=== PATIENT | female | born 1985 | race Caucasian/White ===

== ENCOUNTER 2016-11-02 03:24 | Emergency (ER) | payer OTHER ==
[~2016-11-02] VITALS: Ht 167.6 cm; Wt 65.8 kg
[2016-11-02 03:25] VITALS: BP 148/93
[2016-11-02] MEDS ORDERED: IV NORMAL SALINE 1,000ML 1,000 ML IV SCH (03:35)
[2016-11-02] MEDS ORDERED: 0.9 % SODIUM CHLORIDE 10 ML DISP.SYRIN. IV PRN (03:45)
[2016-11-02] MEDS ORDERED: LIDO:MAALOX 1:1 20 ML SINGLE DOSE PO ONE (03:45)
[2016-11-02] MEDS ORDERED: ONDANSETRON PF 4 MG/2 ML VIAL. IV ONE (04:00)
[2016-11-02] MEDS ORDERED: HYDROmorphone PF 1 MG/ML DISP.SYRIN IV ONE (04:00)
[2016-11-02] MEDS ORDERED: LORazepam 2 MG/ML VIAL IV ONE ×2 (04:00→05:15)
--- NOTE | 2016-11-02 04:06 | EKG ---
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
--- NOTE | 2016-11-02 04:14 | PHYS DOC ---
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 She felt that it is much reminiscent of her reflux disease attempted to take some antacids and sleeping aids before going to bed. The pain is gotten progressively worse describes fullness sharp stabbing pain in the epigastrium with radiation to the back and makes her very nauseous with nonbilious nonbloody vomiting. He's had no diarrhea, no shortness of breath no chest pain but she felt very anxious. She denies any fevers, chills, URI symptoms, trauma, sick contacts. She has had similar symptoms in the past. Patient denies any travel outside the country, antibiotic use or consumption of raw or undercooked food. Pain presently is an 8 of 10 with radiation to the back made worse by the thought of food. Not improved by position or antiacids at this time. She denies any UTI symptoms Review of Systems Review of Systems Constitutional: Denies fever or chills [] Eyes: Denies change in visual acuity, redness, or eye pain [] HENT: Denies nasal congestion or sore throat [] Respiratory: Denies cough or shortness of breath [] Cardiovascular: No additional information not addressed in HPI [] GI: Main complaint is abdominal pain with nausea and nonbilious nonbloody vomiting without diarrhea. : Denies dysuria or hematuria [] Musculoskeletal: Denies back pain or joint pain [] Integument: Denies rash or skin lesions [] Neurologic: Denies headache, focal weakness or sensory changes [] Endocrine: Denies polyuria or polydipsia [] Current Medications Current Medications Current Medications Medications (Trade) Dose Ordered Sig/Mayra Start Time Stop Time Status Last Admin Dose Admin Multi-Ingredient Mouthwash/Gargle (Gi Cocktail) 20 ml 1X ONCE 11/02/16 03:45 11/02/16 03:46 DC 11/02/16 03:44 20 ML Sodium Chloride (Normal Saline Flush) 10 ml QSHIFT PRN 11/02/16 03:45 Allergies Allergies Allergies Coded Allergies Type Severity Reaction Last Updated Verified No Known Drug Allergies 11/02/16 No Physical Exam Physical Exam Patient anxious and tachypnea saturating 100% on room air vital signs within normal limits. Constitutional: Well developed, well nourished, very anxious although no acute distress HENT: Normocephalic, atraumatic, bilateral external ears normal, oropharynx moist, no oral exudates, nose normal. [] Eyes: PERRLA, EOMI, conjunctiva normal, no discharge. [] Neck: Normal range of motion, no tenderness, supple, no stridor. [] Cardiovascular:Heart rate regular rhythm, no murmur [] Lungs & Thorax: Bilateral breath sounds clear to auscultation [] Abdomen: Bowel sounds are increased hyperactive tenderness in the epigastrium with no guarding rebound or organomegaly Skin: Warm, dry, no erythema, no rash. [] Back: No tenderness, no CVA tenderness. [] Extremities: No tenderness, no cyanosis, no clubbing, ROM intact, no edema. [] Neurologic: Alert and oriented X 3, normal motor function, normal sensory function, no focal deficits noted. [] Psychologic: She is very anxious obviously uncomfortable but nontoxic in appearance Current Patient Data Vital Signs Vital Signs Date Time Temp Pulse Resp B/P (MAP) Pulse Ox O2 Delivery O2 Flow Rate FiO2 11/02/16 04:00 22 99 11/02/16 03:25 97.7 80 Room Air Lab Results Laboratory Tests Test 11/02/16 03:35 11/02/16 03:52 11/02/16 03:55 Urine Collection Type Unknown Urine Color Yellow Urine Clarity Clear Urine pH 7.0 Urine Specific [place] 1.015 Urine Protein Neg (NEG-TRACE) Urine Glucose (UA) Neg mg/dL (NEG) Urine Ketones (Stick) Neg mg/dL (NEG) Urine Blood Trace (NEG) Urine Nitrite Neg (NEG) Urine Bilirubin Neg (NEG) Urine Urobilinogen Dipstick 0.2 mg/dL (0.2 mg/dL) Urine Leukocyte Esterase Neg (NEG) Urine RBC Rare /HPF (0-2) Urine WBC Rare /HPF (0-4) Urine Squamous Epithelial Cells Occ /LPF Urine Bacteria 0 /HPF (0-FEW) POC Urine HCG, Qualitative hcg negative (Negative) White Blood Count 7.1 x10^3/uL (4.0-11.0) Red Blood Count 4.68 x10^6/uL (3.50-5.40) Hemoglobin 13.1 g/dL (12.0-15.5) Hematocrit 39.2 % (36.0-47.0) Mean Corpuscular Volume 84 fL (79-100) Mean Corpuscular Hemoglobin 28 pg (25-35) Mean Corpuscular Hemoglobin Concent 34 g/dL (31-37) Red Cell Distribution Width 13.2 % (11.5-14.5) Platelet Count 224 x10^3/uL (140-400) Neutrophils (%) (Auto) 34 % (31-73) Lymphocytes (%) (Auto) 54 % (24-48) H Monocytes (%) (Auto) 7 % (0-9) Eosinophils (%) (Auto) 5 % (0-3) H Basophils (%) (Auto) 1 % (0-3) Neutrophils # (Auto) 2.4 x10^3uL (1.8-7.7) Lymphocytes # (Auto) 3.8 x10^3/uL (1.0-4.8) Monocytes # (Auto) 0.5 x10^3/uL (0.0-1.1) Eosinophils # (Auto) 0.3 x10^3/uL (0.0-0.7) Basophils # (Auto) 0.1 x10^3/uL (0.0-0.2) Sodium Level 139 mmol/L (136-145) Potassium Level 3.4 mmol/L (3.5-5.1) L Chloride Level 102 mmol/L (98-107) Carbon Dioxide Level 29 mmol/L (21-32) Anion Gap 8 (6-14) Blood Urea Nitrogen 9 mg/dL (7-20) Creatinine 0.8 mg/dL (0.6-1.0) Estimated GFR (Cockcroft-Gault) 83.7 BUN/Creatinine Ratio 11 (6-20) Glucose Level 97 mg/dL (70-99) Calcium Level 9.5 mg/dL (8.5-10.1) Magnesium Level 2.2 mg/dL (1.8-2.4) Total Bilirubin 0.2 mg/dL (0.2-1.0) Aspartate Amino Transferase (AST) 11 U/L (15-37) L Alanine Aminotransferase (ALT) 19 U/L (14-59) Alkaline Phosphatase 33 U/L (46-116) L Creatine Kinase 68 U/L (26-192) Creatine Kinase MB (Mass) < 0.5 ng/mL (0.0-3.6) Creatine Kinase MB Relative Index 0.7 % (0-4) Troponin I Quantitative < 0.017 ng/mL (0-0.055) ZZ-Lef-P-Type Natriuretic Peptide 35 pg/mL (0-124) Total Protein 7.4 g/dL (6.4-8.2) Albumin 3.7 g/dL (3.4-5.0) Albumin/Globulin Ratio 1.0 (1.0-1.7) Lipase 165 U/L (73-393) Laboratory Tests Test 11/02/16 03:52 POC Urine HCG, Qualitative hcg negative (Negative) EKG EKG EKG timed 0 3:49 AM 11/02/[address] Regan demonstrates heart rate of 69 normal sinus rhythm with a T-wave inversion in lead V1 normal AL interval at 156, QRS of 86 number QTC of [address] segment or T-wave changes concerning for acute coronary event or ischemia. [] Radiology/Procedures Radiology/Procedures [] Chest x-ray 0 3:41 AM 11/02/2016 demonstrates normal cardiac shadow no pulmonary infiltrates no evidence of pneumothorax normal aortic appearance no subdiaphragmatic air. Read by Dr. Regan Course & Med Decision Making Course & Med Decision Making Pertinent Labs and Imaging studies reviewed. (See chart for details) [] 4:02 AM patient began having nausea and vomiting was relatively severe prompting us to give her some Zofran and pain medications. 4:30 AM patient feels markedly better after given IV Zofran and antiemetics and medication with Ativan. Pending CT of abdomen and pelvis EKGs. Read unremarkable. 5:10 AM discussed with patient negative urinalysis, negative test, CBC is normal and CMP is normal lipase normal, troponin negative. CT of the abdomen and pelvis still pending. Patient is no longer vomiting. 5:30 patient resting quietly has voided in the emergency department after IV fluids. Patient seems more comfortable awaiting CT results. Patient present with abdominal pain in the epigastric with nausea vomiting and anxiety. At this point doubt pericarditis, cholelithiasis, cholecystitis, appendicitis, small bowel obstruction, early , morning sickness, or other intra-abdominal pathology. CT abdomen and pelvis still pending. Time 5:[address] results are back demonstrating predominant dilated gallbladder without gallbladder wall thickening no cholelithiasis no evidence cholecystitis. Appendix is unremarkable patient has no evidence of peritonitis. Patient is a fibroid uterus otherwise unremarkable CT the abdomen and pelvis. Dragon Disclaimer Dragon Disclaimer This chart was dictated in whole or in part using Voice Recognition software in a busy, high-work load, and often noisy Emergency Department environment. It may contain unintended and wholly unrecognized errors or omissions. Departure Departure: Impression: Primary Impression: Abdominal pain Additional Impressions: Nausea and vomiting Anxiety Disposition: 01 HOME, SELF-CARE Condition: IMPROVED Patient Instructions: Abdominal Pain (Nonspecific), Anxiety and Panic Attacks, Nausea and Vomiting Additional Instructions: Please return for any new or increasing symptoms or given any questions or concerns. I would advise a follow-up with her GI doctor to schedule your EGD area he may be suffering from peptic ulcer disease which may benefit from a PPI and antibiotic treatment but I would advise that you follow-up with her primary care doctor didn't initiate that treatment. Scripts Ondansetron (ZOFRAN ODT) 8 Mg Tab.rapdis 4 MG PO TID for 5 Days Prov: SHANNAN REGAN MD 11/02/16 Dicyclomine Hcl (BENTYL) 10 Mg Capsule 1 CAP PO TID, #15 CAP.EC Prov: SHANNAN REGAN MD 11/02/16 Pantoprazole Sodium (PROTONIX) 40 Mg Tablet.dr 1 TAB PO DAILY, #30 TAB 5 Refills Prov: SHANNAN REGAN MD 11/02/16 Hydrocodone Bit/Acetaminophen (HYDROCODONE-APAP 5-325 ) 1 Each Tablet 1 TAB PO PRN Q6HRS Y for PAIN for 5 Days, #10 TAB 0 Refills Prov: SHANNAN REGAN MD 11/02/16 Problem Qualifiers SHANNAN REGAN MD Nov 02, 2016 04:14
[2016-11-02 04:15] LABS: BASO # 0.1 x10^3/uL (0.0-0.2); BASO % 1 % (0-3); EOS # 0.3 x10^3/uL (0.0-0.7); EOS % 5 % (0-3); HEMATOCRIT 39.2 % (36.0-47.0); HEMOGLOBIN 13.1 g/dL (12.0-15.5); LYMPH # 3.8 x10^3/uL (1.0-4.8); LYMPH % 54 % (24-48); MEAN CORPUSCULAR HEMOGLOBIN 28 pg (25-35); MEAN CORPUSCULAR HGB CONC 34 g/dL (31-37); MEAN CORPUSCULAR VOLUME 84 fL (79-100); MONO # 0.5 x10^3/uL (0.0-1.1); MONO % 7 % (0-9); NEUT # 2.4 x10^3uL (1.8-7.7); NEUT % 34 % (31-73); PLATELET COUNT 224 x10^3/uL (140-400); RED BLOOD COUNT 4.68 x10^6/uL (3.50-5.40); RED CELL DISTRIBUTION WIDTH 13.2 % (11.5-14.5); WHITE BLOOD COUNT 7.1 x10^3/uL (4.0-11.0)
[2016-11-02 04:22] LABS: BACTERIA,URINE 0 /HPF (0-FEW); BILIRUBIN,URINE NEG (NEG); CLARITY,URINE CLEAR; COLOR,URINE YELLOW; GLUCOSE,URINE NEG (NEG); NITRITE,URINE NEG (NEG); RBC,URINE RARE /HPF (0-2); SQUAMOUS EPITHELIAL CELL,UR OCC /LPF; UROBILINOGEN,URINE 0.2 mg/dL (0.2 mg/dL); WBC,URINE RARE /HPF (0-4)
[2016-11-02] MEDS ORDERED: IOHEXOL 300 MG/ML 75 ML VIAL. IV ONE (04:30)
[2016-11-02] MEDS ORDERED: CONTRAST GIVEN MC PRN (04:30)
[2016-11-02 04:42] LABS: ALBUMIN 3.7 g/dL (3.4-5.0); ALK PHOS 33 U/L (46-116); ALT (SGPT) 19 U/L (14-59); ANION GAP 8 (6-14); AST (SGOT) 11 U/L (15-37); BLOOD UREA NITROGEN 9 mg/dL (7-20); BUN/CREATININE RATIO 11 (6-20); CALCIUM 9.5 mg/dL (8.5-10.1); CARBON DIOXIDE 29 mmol/L (21-32); CHLORIDE 102 mmol/L (98-107); CREATINE KINASE 68 U/L (26-192); CREATININE 0.8 mg/dL (0.6-1.0); GFR 83.7; GLUCOSE 97 mg/dL (70-99); LIPASE 165 U/L (73-393); MAGNESIUM 2.2 mg/dL (1.8-2.4); POTASSIUM 3.4 mmol/L (3.5-5.1); SODIUM 139 mmol/L (136-145); TOTAL BILIRUBIN 0.2 mg/dL (0.2-1.0); TOTAL PROTEIN 7.4 g/dL (6.4-8.2)
[2016-11-02] MEDS ORDERED: DICYCLOMINE HCL 20 MG TABLET PO ONE (05:15)
--- NOTE | 2016-11-02 05:43 | RAD ---
CT abdomen and pelvis with contrast: Reason for examination: Severe upper abdominal pain with nausea and vomiting. Helical images were obtained through the abdomen and pelvis with intravenous administration of 75 cc Omnipaque 300. Reconstruction was performed in sagittal and coronal planes. Exposure: One or more of the following individualized dose reduction techniques were utilized for this examination: 1. Automated exposure control 2. Adjustment of the mA and/or kV according to patient size 3. Use of iterative reconstruction technique. The lung bases are clear. The heart size is normal with no pericardial effusion seen. No focal hepatic lesions are seen. There does appear to be some mild intrahepatic biliary dilatation present. No abnormality seen at spleen, adrenal glands or pancreas. The gallbladder appears to be distended measuring approximately 10 cm in greatest dimension. There is no definite gallbladder wall thickening. No cholelithiasis is identified. The kidneys show no renal masses. There is a small nonobstructing calculus at the upper pole of the left kidney. No hydronephrosis or obstructive uropathy is evident. No acute amount seen of the appendix. There is no evidence of diverticulosis or diverticulitis. The small intestinal tract shows no abnormally dilated loops of bowel or thickened bowel cisse. No abnormalities seen in the stomach. No abnormality seen at the bladder. There is a small 1 cm hypodense lesion which appears to lie in the uterus which probably represents a fibroid. No other adnexal masses are seen. No acute bony abnormalities are evident. IMPRESSION: Prominent gallbladder measuring 10 cm in greatest dimension with some mild intrahepatic biliary dilatation but no choleliths evident. Tiny nonobstructing calculus in the upper pole of the left kidney. 1 cm hypodense lesion in the uterine fundus which probably represents a small fibroid. No other focal abnormalities seen in the abdomen or pelvis. Electronically signed by: Kacie Turner MD (11/02/2016 5:39 AM)
[2016-11-02] MEDS ORDERED: DICY10CA53 PO (05:47)
[2016-11-02] MEDS ORDERED: PANT40TA3 PO (05:47)
[2016-11-02] MEDS ORDERED: ONDA8TAB12 PO (05:47)
[2016-11-02] MEDS ORDERED: HYDR-2758 PO (05:47)
--- NOTE | 2016-11-02 05:47 | ACF ---
Admission Criteria Forms ABDOMINAL PAIN Clinical Indications for Admission to Inpatient Care (Place 'X' for any and all applicable criteria): Admission is indicated for ANY ONE of the following(1)(2)(3)(4)(5): [ ]I. Inpatient admission required rather than observation care (Also use Abdominal Pain: Observation Care, as appropriate) because of ANY ONE of the following: [ ]a) Severe pain requiring acute inpatient management [ ]b) Identification of etiology/finding that requires inpatient care (eg, aortic dissection, free air) [ ]c) Absent bowel sounds with complete ileus(6) [ ]d) Suspected toxic megacolon [ ]e) Severe electrolyte abnormalities requiring inpatient care [ ]f) High fever or infection requiring inpatient admission as indicated by ANY ONE of following(7)(8): [ ] i) Appropriate outpatient or observational care antimicrobial treatment unavailable, not effective, or not feasible [ ] ii) Documented bacteremia [ ] iii) Temperature > 104.9 degrees F (oral) [ ] iv) T >103.1 F (oral) or < 96.8 F(rectal) that does not respond to all emergency treatment measures [ ]g) Signs of intestinal obstruction [B] [ ]h) Hemodynamic instability [ ]i) IV fluid to replace significant ongoing losses (greater than 3 L/m2 per day) (12)(13) [ ]j) Percutaneous or open drainage (eg, abscess, biliary tract ) procedures [ ]k) Parenteral nutrition regimen that must be implemented on inpatient basis [ ]l) Other condition,treatment or monitoring requiring inpatient admission. [ ]II. Peritoneal signs present [ ]III. Surgery needed that cannot be performed on an ambulatory basis. [ ]IV. Evaluation requires patient to not eat or drink for extended period ( eg, more than 24 hours). [ ]V. Contraindications and/or Inappropriate clinical situations for Observational Care in patients with abdominal pain, when ANY ONE of the following is required: [ ]a) Thorough evaluation is required to prevent catastrophic events due to delays in diagnosing (e.g.Mesenteric ischemia) 1,3 [ ]b) Patient with severe pathology or with chronic symptoms unlikely to improve in the ED stay (3) [ ]. General contraindications and/or Inappropriate clinical situations for Observational Care in patients with abdominal pain, when ANY ONE of the following is required: [ ]a) Prediction of prolongation of LOS based on ANY ONE of the following may be considered as a contraindication for observational care 2, 3, 4, 5, 6, 7, 8, 9, 10, 11 [ ]i) Age > 65 yrs. [ ]ii) Patient arriving by ambulance [ ]iii) Patient with high acuity [ ]iv) Patient requiring vital sign monitoring [ ]v) Patient on IV medication [ ]b) Systolic blood pressures 180mmHg 3,12 [ ]c) Patient with altered mental status including delirium and other alteration of consciousness, (3) [ ]d) Patient whose discharge disposition will be to a senior living home or rehabilitation home should not be managed in Emergency Department Observation Unit. CMS rule requires 3 days hospital stay before such placement.3,13 [ ]e) Patient with failure to thrive due to broad array of etiologies 3,16,17 [ ]f) Inability to ambulate 3,14 Extended stay beyond goal length of stay may be needed for(2)(3): [ ]a) Persistent abdominal pain with suspected intra-abdominal process [ ]b) Diagnosed condition requiring continued stay (e.g., pancreatitis, complicated diverticulitis) [ ]c) Surgery (e.g., colectomy) The original [employer] content created by [employer] has been revised. The portions of the content which have been revised are identified through the use of italic text or in bold, and [facility] has neither reviewed nor approved the modified material.All other unmodified content is copyright [employer]. Please see references footnoted in the original [employer] edition 2016 ROSINA RICHARDS Nov 02, 2016 05:47
--- NOTE | 2016-11-02 08:20 | RAD ---
Chest, 2 views, 11/02/2016: History: Anterior chest pain The heart size and pulmonary vascularity are normal. No pulmonary infiltrates are seen. There is no evidence of pleural fluid. IMPRESSION: No acute cardiopulmonary abnormality is detected.
== END 2016-11-02 06:00 | disposition home or self-care (01) ==
LOC: ER 03:24
DX: R10.13 Epigastric pain (principal); R11.2 Nausea with vomiting, unspecified; F41.9 Anxiety disorder, unspecified; K21.9 Gastro-esophageal reflux disease without esophagitis; F17.210 Nicotine dependence, cigarettes, uncomplicated
CPT/HCPCS: 36415; 71020; 74177; 80053; 81001; 81025; 82553; 83690; 83735; 83880; 84443; 84484; 85027; 93005; 96361; 96374; 96375; 96376; 99285; J1170; J2060; J2405; Q9967; J7030

== ENCOUNTER → 2018-02-26 | Outpatient (CLI) | payer OTHER ==
[~2018-02-26] MED LIST: DICY10CA53 PO; HYDR-2758 PO; ONDA8TAB12 PO; PANT40TA3 PO
[2018-02-26 15:23] LABS: BASO % 1 % (0-3); EOS # 0.3 x10^3/uL (0.0-0.7); EOS % 4 % (0-3); HEMATOCRIT 40.2 % (36.0-47.0); HEMOGLOBIN 13.4 g/dL (12.0-15.5); LYMPH # 2.6 x10^3/uL (1.0-4.8); LYMPH % 41 % (24-48); MEAN CORPUSCULAR HEMOGLOBIN 28 pg (25-35); MEAN CORPUSCULAR HGB CONC 33 g/dL (31-37); MEAN CORPUSCULAR VOLUME 85 fL (79-100); MONO # 0.5 x10^3/uL (0.0-1.1); MONO % 8 % (0-9); NEUT # 2.9 x10^3uL (1.8-7.7); NEUT % 46 % (31-73); PLATELET COUNT 235 x10^3/uL (140-400); RED BLOOD COUNT 4.75 x10^6/uL (3.50-5.40); WHITE BLOOD COUNT 6.3 x10^3/uL (4.0-11.0)
--- NOTE | 2018-02-26 16:23 | RAD ---
EXAM: Pelvic sonogram. HISTORY: Dysfunctional uterine bleeding. TECHNIQUE: Transabdominal and transvaginal sonographic imaging of the pelvis was performed. COMPARISON: CT dated 11/02/2016. FINDINGS: The uterus is 8.8 x 6.8 x 3.5 cm. The endometrial stripe measures 1.44 cm in maximum thickness. The ovaries are normal in size and demonstrate normal blood flow. There is a 2.4 cm right ovarian follicular cyst with thin internal septation or adjacent dominant follicles. There is a small amount of pelvic free fluid. There is a 3.6 cm uterine fibroid within the posterior left fundus. IMPRESSION: 1. 3.6 cm uterine fibroid. 2. Prominent endometrial stripe measuring 1.44 cm in thickness. This is within normal limits for a premenopausal female. 3. 2.4 cm right ovarian cyst with thin internal septation or 2 adjacent right ovarian follicles. 4. Small amount of nonspecific pelvic free fluid. Electronically signed by: Abigail Bettencourt MD (02/26/2018 4:19 PM) [id number]
[2018-02-27 04:10] LABS: FSH 3.2 mIU/mL (.); LUTEINIZING HORMONE 4.1 mIU/mL (.)
[2018-02-27 05:08] LABS: HEMOGLOBIN A1C 5.1 % (4.8-5.6)
[2018-02-27 08:08] LABS: INSULIN LEVEL 5.8 uIU/mL (2.6-24.9)
== END | disposition home or self-care (01) ==
LOC: US 14:33
PROVIDERS: ATTEND General Practice
DX: D25.9 Leiomyoma of uterus, unspecified (principal); N83.01 Follicular cyst of right ovary
CPT/HCPCS: 36415; 76830; 76856; 83001; 83002; 83036; 83525; 84443; 85025

== ENCOUNTER → 2019-12-23 | Outpatient (CLI) | payer OTHER ==
[~2019-12-23] MED LIST changes: +HYDR-2155 PO; -HYDR-2758 PO
--- NOTE | 2019-12-23 17:18 | RAD ---
EXAM: Abdomen, 2 views. HISTORY: Pain. COMPARISON: CT dated 11/02/2016. FINDINGS: Frontal upright and supine views of the abdomen are obtained. There is gas and stool within the colon. There is no evidence of bowel obstruction. There is no free air. There are cholecystectomy clips. IMPRESSION: Nonobstructive bowel gas pattern. Electronically signed by: Abigail Bettencourt MD (12/23/2019 5:15 PM) [id number]
== END | disposition home or self-care (01) ==
LOC: PMG 15:32
PROVIDERS: ATTEND Physician Assistant
DX: R10.32 Left lower quadrant pain (principal); R14.3 Flatulence; Z90.49 Acquired absence of other specified parts of digestive tract
CPT/HCPCS: 74019

== ENCOUNTER → 2019-12-31 | Outpatient (CLI) | payer OTHER ==
--- NOTE | 2019-12-31 11:15 | RAD ---
US PELVIS W/TV History: Pelvic pain Comparison: None. Findings: Multiple transabdominal sonographic images of the pelvis are submitted. Uterus measured 7.5 x 4.3 x 4.8 cm. Left ovary measured 4.9 x 5.6 x 4 cm, located in the midline, internal color flow. Right ovary measured 5.1 x 4.2 x 4.9 cm, color-flow demonstrated at the periphery. Transvaginal ultrasound: Multiple transvaginal sonographic images of the pelvis are submitted. Uterus measured 9.2 x 4.7 x 7 cm. Endometrium measured 0.5 cm. There is heterogeneity of the uterus with several masses present. Largest partially exophytic mass along the serosa of the left uterus anteriorly measures about 3.7 x 4.1 x 2.3 cm. There is a mass near the uterine fundus approximating the endometrial complex measuring about 1.7 cm greatest dimension, some internal color flow on color Doppler imaging. There are some echogenic likely calcifications of the lower uterine segment. There is a hypoechoic mass at level of the cervix about 1.4 x 1.3 x 0.7 cm. Right ovary measured 2.7 x 1.9 x 1.8, internal color flow as well as low resistance vascularity. What likely represents left ovary is near the midline mass is located near the midline although underlying large focus of abnormal echogenicity measuring 4.8 x 4.8 x 4.2 cm, not significantly internally hypervascular on color Doppler imaging although diffuse internal echoes present. Overall size of left ovary is estimated at 4.9 x 5.6 x 4 cm, some color flow at the periphery. There is trace free fluid in the cul-de-sac. Impression: 1. What is likely the left ovary is located near the midline, associated large area of abnormal echogenicity although not associated with significant central hypervascularity. While underlying avascular solid mass is not excluded, findings could be due to a large hemorrhagic cyst or endometrioma. MRI evaluation may be beneficial. 2. There are multiple uterine masses more likely due to fibroids. There is also a hypoechoic mass near the cervix. Electronically signed by: Gurjit Hall MD (12/31/2019 11:11 AM) [id number]
== END | disposition home or self-care (01) ==
LOC: US 09:32
PROVIDERS: ATTEND Physician Assistant
DX: N88.9 Noninflammatory disorder of cervix uteri, unspecified (principal); R10.2 Pelvic and perineal pain
CPT/HCPCS: 76830; 76856